=== PATIENT | male | born 1990 | race Caucasian/White ===

== ENCOUNTER 2020-01-06 11:34 | Emergency (ER) | payer OTHER, SELFPAY ==
--- NOTE | ~2020-01-06 | XR_ITS ---
EXAMINATION: XR lumbar spine 2-3V EXAM DATE: 01/06/2020 12:17 INDICATION: Left lower back pain developed while working out doing squats. TECHNIQUE: Lumber spine frontal, lateral, bilateral oblique projections. Coned down frontal and lat eral L5-S1 lumbar projections for interpretation. There is no prior study for comparison. FINDINGS: Minimal lumbar levocurvature. No spondylolysis. The vertebral bodies are aligned in the AP dimension. Vertebral body and disc heights are well-maintained. There are no acute fractures identifi ed. Sacrum, sacroiliac joints, sacral arcuate lines are intact. Paraspinal soft tissue is unremarkabl e. Mild lower lumbar facet arthropathy. IMPRESSION: 1. Mild lower lumbar facet arthropathy. 2. Minimal levocurvature. Reviewed, dictated and finalized at location A. GE OPERATOR
[2020-01-06 11:42] VITALS: BP 153/76; PULSE 64; RESP 18; TEMP 36.5; O2SAT 100
--- NOTE | 2020-01-06 11:51 | ED.GENADULT ---
HPI - General Adult General Chief complaint: Back Pain/Injury Stated complaint: lower back pain Time Seen by Provider: 01/06/20 11:52 Source: patient and RN notes reviewed Mode of arrival: ambulatory Limitations: no limitations History of Present Illness HPI narrative: This is a 29 years old male presented office for evaluation of lower back pain for 6days. Pain began while he was doing squat . States, he felt an instant pain, described as combination of sharp, dull, achy and dull pain. Pain is constant and worse at times. Denies numbness or tingling in his lower leg. Denies urinary or bowel incontinence. He has been taking ibuprofen for pain with no relief. Admits to history of chronic lower back pain with herniated disc, however he has not have any pain for the last 2 years. Denies recent trauma or injury directly to his back. He also does heavy weight lifting as form of exercise. He has not been exercising since his back pain. Related Data Allergies Allergy/AdvReac Type Severity Reaction Status Date / Time gluten Allergy Severe Diarrhea Verified 01/06/20 11:56 Review of Systems Review of Systems: Narrative: CONSTITUTIONAL: Denies fever or feeling ill ENT: Denies congestion CARDIOVASCULAR: Denies chest pain RESPIRATORY: Denies cough GASTROINTESTINAL: Denies nausea, vomiting GENITOURINARY: Denies urinary/bowel incontinent. SKIN: Denies rash MUSCULOSKELETAL: Reports back pain without any radiation NEUROLOGIC: Denies lightheaded/dizziness PMFSH Past Medical History Medical History Chronic back pain Herniated disc History of concussion Comments At time of signature, I agree with nursing past medical, surgical, social and family history. There is no relevant family history pertinent to the presenting complaint. Exam Narrative: Exam Narrative: GENERAL: This is a well-nourished, well-developed patient, in no apparent distress. CARDIOVASCULAR: Regular rate and rhythm without murmurs, gallops, or rubs. RESPIRATORY: Clear to auscultation. Breath sounds equal bilaterally. No wheezes, rales, or rhonchi. GASTROINTESTINAL: Abdomen soft, non-tender, nondistended. Bowel sounds are active.No guarding. SKIN: warm, intact with no suspicious lesions or rash on affected area. NEURO: awake, alert, and oriented to person, place and time. There were no obvious focal neurologic abnormalities. Steady gait BACK: Tenderness in the paraspinous muscles in the lumbar area. No tenderness over the spinous processes of the lumbar vertebrae. LEGS: Normal strength including dorsi-flexion and plantar flexion of the feet. Negative bilateral straight leg raising, normal and symmetrical knee and ankle reflexes. [place] Coma Scale Eye Opening: Spontaneous 4 [place] Coma Scale Motor: Obeys Commands 6 [place] Coma Scale Verbal: Oriented 5 Course Vital Signs Vital signs: Vital Signs Temperature 97.7 F 01/06/20 11:42 Pulse Rate 64 01/06/20 11:42 Respiratory Rate 18 01/06/20 11:42 Blood Pressure 153/76 H 01/06/20 11:42 Pulse Oximetry 100 01/06/20 11:42 Temperature 97.7 F 01/06/20 11:42 Pulse Rate 64 01/06/20 11:42 Respiratory Rate 18 01/06/20 11:42 Blood Pressure 153/76 H 01/06/20 11:42 Pulse Oximetry 100 01/06/20 11:42 Medical Decision Making MDM Narrative Medical decision making narrative: Discharge instructions reviewed with patient, as well as provided in writing per nursing staff. The instructions also include specific and strict return/GO TO THE ER as well as f/u information. All questions have been answered, and the patient deny any further questions with discharge and discharge plan. Differential Diagnosis Differential Diagnosis: Osteoarthritis, lumbar compression, DJD, sciatica, strain, muscle skeletal pain Medical Records Medical records reviewed: Yes I reviewed the patient's medical records. Vital Signs Vital Signs: Vital Signs Tem
[2020-01-06] MEDS: KETOROLAC 30 MG/ML VIAL (*BKC) 60 MG IV PUSH (12:22)
== END 2020-01-06 12:50 | disposition home or self-care (01) ==
PROVIDERS: Emergency Provider Nurse Practitioner
DX: M12.88 Other specific arthropathies, not elsewhere classified, other specified site (principal); R03.0 Elevated blood-pressure reading, without diagnosis of hypertension
CPT/HCPCS: 72100; 96374; 99213; G0463; J1885

== ENCOUNTER 2023-09-07 14:09 | Emergency (ER) | payer BC, SELFPAY ==
[2023-09-07 14:14] VITALS: BP 177/92; PULSE 99; RESP 16; TEMP 36.6; O2SAT 97
--- NOTE | 2023-09-07 14:25 | ED.BACK ---
HPI - Back Pain/Injury General Chief Complaint: Back Pain/Injury Stated Complaint: back pain Source: patient and RN notes reviewed History of Present Illness HPI Narrative: 33-year-old male presents to urgent care with complaints of left lower back pain. Patient reports a chronic history of lower back pain but states he has been having sciatica down his left leg for the last 3 weeks. Patient states last night he was standing up when he felt a pop in his left lower back, prompting a more intense pain. Patient denies any fevers, chills numbness, tingling, incontinence of urine or stool saddle anesthesia, or weakness. Patient has been taking 800 mg of ibuprofen at home. Related Data Home Medications Medication Instructions Recorded Confirmed famotidine 40 mg tablet 40 mg PO DAILY 09/07/23 09/07/23 fluoxetine 20 mg capsule 20 mg PO DAILY 09/07/23 09/07/23 Allergies Allergy/AdvReac Type Severity Reaction Status Date / Time gluten Allergy Severe Diarrhea Verified 09/07/23 14:17 Review of Systems Review of Systems: CONSTITUTIONAL: Denies fever, chills, or sweats. EYES: Denies visual changes, redness, or discharge. ENT: Denies otalgia and sore throat CARDIOVASCULAR: Denies chest pain, palpitations, or edema. RESPIRATORY: Denies cough or dyspnea. GASTROINTESTINAL: Denies abdominal pain, nausea, vomiting, or diarrhea. GENITOURINARY: Denies dysuria or hematuria. SKIN: Denies rash or itching. MUSCULOSKELETAL: Left lower back pain NEUROLOGIC: Denies headache, numbness, or weakness. Pertinent positives per HPI. [facility] Past Medical History Medical History (Updated 09/07/23 @ 14:26 by Marie Lema, JOSS) Chronic back pain Herniated disc History of concussion Comments At the time of my signature, I reviewed and agree with the nursing past medical, surgical, social, and family history. There is no relevant family history pertinent to the patient complaint. Exam Narrative: GENERAL: This is a well-nourished, well-developed patient, in no apparent distress. HEAD: normocephalic, atraumatic. EYES: Sclera clear/white. Vision is grossly intact. EARS: External ears normal, auditory canals clear and without drainage. Hearing grossly intact. NOSE: External nose normal with no obvious nasal discharge, nares without redness, no rhinorrhea. THROAT: Mucous membranes moist, posterior pharynx clear. NECK: Neck supple, non-tender without lymphadenopathy, masses or thyromegaly. CARDIOVASCULAR: Regular rate RESPIRATORY: No respiratory distress SKIN: warm, intact with no suspicious lesions or rash, good texture and turgor. NEURO: awake, alert, and oriented to person, place and time. There were no obvious focal neurologic abnormalities. EXTREMITIES: No clubbing, cyanosis, or edema. No joint tenderness, effusion, or edema noted. BACK: Tender to left lower back without deformity or crepitus. No spinal tenderness. No flank tenderness. Pt stiff and unable to move quickly or freely due to pain. Course Course Level of Care: Express Care Visit Vital Signs Vital signs: Vital Signs Temperature 97.9 F 09/07/23 14:14 Pulse Rate 99 09/07/23 14:14 Respiratory Rate 16 09/07/23 14:14 Blood Pressure 177/92 H 09/07/23 14:14 Pulse Oximetry 97 09/07/23 14:14 Oxygen Delivery Room Air 09/07/23 14:14 Temperature 97.9 F 09/07/23 14:14 Pulse Rate 99 09/07/23 14:14 Respiratory Rate 16 09/07/23 14:14 Blood Pressure 177/92 H 09/07/23 14:14 Pulse Oximetry 97 09/07/23 14:14 Oxygen Delivery Room Air 09/07/23 14:14 reviewed MDM - Back Pain/Injury MDM Narrative Medical decision making narrative: Take steroids as directed. May take 600 mg of ibuprofen (Advil, Motrin, Aleve) every 6 hours as needed with food or 800 mg every 8 hours. Follow up with director of casework in 5-7 days. Go to the emergency dept with any new or worsening symptoms. Differential Diagnosis Differential diagnosis: Likely sciatica, stra
[2023-09-07] MEDS: methylPREDNISolone SOD SUCC 125 MG VIAL IM (14:29)
== END 2023-09-07 14:39 | disposition home or self-care (01) ==
PROVIDERS: Emergency Provider Nurse Practitioner Family
DX: M54.32 Sciatica, left side (principal)
CPT/HCPCS: 96372; 99213; G0463; J2930

== ENCOUNTER 2023-11-23 10:22 | Emergency (ER) | payer BC, SELFPAY ==
[2023-11-23 10:31] VITALS: BP 160/83; PULSE 92; RESP 16; TEMP 36.4; O2SAT 100
--- NOTE | 2023-11-23 10:56 | ED.EYEPROB ---
HPI - Eye Problem General Chief complaint: Eye Problems Stated complaint: left eye Time Seen by Provider: 11/23/23 10:42 Source: patient, RN notes reviewed and old records reviewed Mode of arrival: ambulatory Limitations: no limitations History of Present Illness HPI Narrative: 33 year old male presents to [facility] care with complaints of left eye irritation and itching and redness with some increased watering and mucoid drainage this morning. Patient denies any foreign body sensation or any known foreign body. Patient states eye was a little blurry this morning but vision is clear now, normally wears contacts did take left contact out, no redness to right eye noted. Patient reports that he did put OTC eye drop in his left eye with no improvement.Visual acuity right eye 20/20 with contact lens, left eye 20/200 without corrective lens. MD chief complaint: eye redness Onset (ago): hour(s) (this morning) Eye Symptoms: burning, redness, itching, discharge and other (increased watering) Severity: mild Treatments Prior to Arrival: removed contact lens and other (otc eye drop) Related Data Home Medications Medication Instructions Recorded Confirmed famotidine 40 mg tablet 40 mg PO DAILY 09/07/23 09/07/23 fluoxetine 20 mg capsule 20 mg PO DAILY 09/07/23 09/07/23 clotrimazole 10 mg beatris mg 11/23/23 Allergies Allergy/AdvReac Type Severity Reaction Status Date / Time gluten Allergy Severe Diarrhea Verified 09/07/23 14:17 Review of Systems Review of Systems: CONSTITUTIONAL: Denies fever, chills, or sweats. EYES: Denies visual changes. Reports redness, irritation, discharge left eye, increased watering ENT: Denies rhinorrhea, congestion, sore throat, or otalgia. CARDIOVASCULAR: Denies chest pain, palpitations, or edema. RESPIRATORY: Denies cough or dyspnea. SKIN: Denies rash or itching. NEUROLOGIC: Denies headache All systems reviewed & are unremarkable except as noted in HPI and below PMFSH Past Medical History Medical History Anxiety Chronic back pain GERD (gastroesophageal reflux disease) Herniated disc History of concussion Surgical History Surgical History (Updated 11/24/23 @ 09:45 by Siri Morgan NP) H/O removal of cyst back of head History of dental surgery Social History Social History (Updated 11/24/23 @ 09:46 by Siri Morgan NP) Smoking packs per day: 1 Smoking cigarettes per day: 20.0 Years smoked: 15 Smoking pack-years: 15.00 Smoking status: Current every day smoker Tobacco type: cigarettes Alcohol intake: current Alcohol use details: social Substance use type: does not use Living arrangements: with family Gender identity (if verbalized by the patient): Male Comments At time of signature, agree with nursing past medical, surgical, social and family history. There is no relevant family history pertinent to the presenting complaint Exam Narrative: GENERAL: Well-appearing, well-nourished, and in no acute distress. HEAD: Normocephalic, atraumatic. EYES: PERRLA and EOMI. Upper and lower eyelids unremarkable. No periorbital cellulitis noted. Sclera and conjunctivae injected left eye, denies any sharp pain left eye ENT: Nares clear, no rhinorrhea or epistaxis. Mucous membranes moist.TM's normal throat pink with no lesions or swelling. NECK: Supple. no lymphadenopathy CHEST: Clear to auscultation. No respiratory distress.SAO2 100% on room air HEART: Regular rate and rhythm. No murmur heard. Normal peripheral pulses. SKIN: Warm, dry, no rash. NEURO: No focal deficits. Alert and oriented x3. Course Course Emergency Course: Patient is aware of diagnosis, understands and agrees to treatment plan. Anticipatory guidance given. Patient agrees to follow-up as directed and is aware of reasons to seek care at the emergency department. Portions of this record may have been created with voice recognition software
== END 2023-11-23 11:10 | disposition home or self-care (01) ==
PROVIDERS: Emergency Provider Registered Nurse; PCP Hospitalist
DX: H10.9 Unspecified conjunctivitis (principal); F17.210 Nicotine dependence, cigarettes, uncomplicated; K21.9 Gastro-esophageal reflux disease without esophagitis; F41.9 Anxiety disorder, unspecified
CPT/HCPCS: 99213; G0463

== ENCOUNTER 2024-10-10 08:02 | Emergency (ER) | payer BC, SELFPAY ==
[2024-10-10 08:08] VITALS: BP 170/100; PULSE 107; RESP 18; TEMP 36.6; O2SAT 99
--- NOTE | 2024-10-10 08:11 | ED_ITS ---
HPI - Eye Problem General Chief complaint: Eye Problems Stated complaint: Eye Problem Time Seen by Provider: 10/10/24 08:11 Source: patient Mode of arrival: ambulatory Limitations: no limitations History of Present Illness HPI Narrative: 34 yo M presents with c/o L eye irritation, redness, drainage for 3 days. Increase in swelling to lower eyelid. Wears contacts and has continued to wear them during symptoms. No vision change. Denies eye injury. all systems reviewed and negative except as noted above. Related Data Home Medications Medication Instructions Recorded Confirmed famotidine 40 mg tablet 40 mg PO DAILY 09/07/23 10/10/24 fluoxetine 20 mg capsule 20 mg PO DAILY 09/07/23 10/10/24 fluoxetine 10 mg capsule 10 mg PO DAILY 10/10/24 10/10/24 Allergies Allergy/AdvReac Type Severity Reaction Status Date / Time gluten Allergy Severe Diarrhea Verified 10/10/24 08:23 Review of Systems Review of Systems: CONSTITUTIONAL: Denies fever, chills, or sweats. EYES: Denies visual changes . Reports left eye redness, irritation, swelling, discharge. ENT: Denies rhinorrhea, congestion, sore throat, or otalgia. CARDIOVASCULAR: Denies chest pain, palpitations, or edema. RESPIRATORY: Denies cough or dyspnea. GASTROINTESTINAL: Denies abdominal pain, nausea, vomiting, or diarrhea. GENITOURINARY: Denies dysuria or hematuria. SKIN: Denies rash or itching. MUSCULOSKELETAL: Denies back pain, joint pain, or myalgia. NEUROLOGIC: Denies headache, numbness, or weakness. PSYCHIATRIC: Denies anxiety or depression. All other systems reviewed are negative, except as documented in HPI. [facility] Past Medical History Medical History Anxiety Chronic back pain GERD (gastroesophageal reflux disease) Herniated disc History of concussion Surgical History Surgical History (Updated 11/24/23 @ 09:45 by Siri Morgan NP) H/O removal of cyst back of head History of dental surgery Social History Social History (Updated 11/24/23 @ 09:46 by Siri Morgan NP) Smoking packs per day: 1 Smoking cigarettes per day: 20.0 Years smoked: 15 Smoking pack-years: 15.00 Smoking status: Current every day smoker Tobacco type: cigarettes Alcohol intake: current Alcohol use details: social Substance use type: does not use Living arrangements: with family Gender identity (if verbalized by the patient): Male Comments At time of signature, agree with nursing past medical, surgical, social and family history. There is no relevant family history pertinent to the presenting complaint. Exam Narrative: GENERAL: This is a well-nourished, well-developed patient, in no apparent distress. HEAD: normocephalic, atraumatic. EYES: PERRL. sclera and conjunctiva erythematous, thick yellowish drainage, swelling to lower eyelid. No pustule concerning for stye. EARS: External ears normal NOSE: External nose normal NECK: Neck supple, non-tender without lymphadenopathy, masses or thyromegaly. CARDIOVASCULAR: Regular rate and rhythm without murmurs, gallops, or rubs. RESPIRATORY: Clear to auscultation. Breath sounds equal bilaterally. No wheezes, rales, or rhonchi. SKIN: warm, Dry, intact with no suspicious lesions or rash, good texture and turgor. NEURO: awake, alert, and oriented to person, place and time. There were no obvious focal neurologic abnormalities. EXTREMITIES: No joint tenderness, effusion, or edema noted. Course Course Level of Care: Express Care Visit Vital Signs Vital signs: Vital Signs Temperature 36.6 C 10/10/24 08:08 Pulse Rate 107 H 10/10/24 08:08 Respiratory Rate 18 10/10/24 08:08 Blood Pressure 170/100 H 10/10/24 08:08 Pulse Oximetry 99 10/10/24 08:08 Oxygen Delivery Room Air 10/10/24 08:08 Temperature 36.6 C 10/10/24 08:08 Pulse Rate 107 H 10/10/24 08:08 Respiratory Rate 18 10/10/24 08:08 Blood Pressure 156/92 H 10/10/24 08:19 Pulse Oximetry 99 10/10/24 08:08 Oxygen Delivery Room Air 10/10/24 08:08 reviewed, discussed pt's elevated BP with him. has not taken in 1 wk. educated on taking BP meds daily. MDM - Eye Problem MDM Narrative Medical decision making narrative: Patient is aware of diagnosis, understands and agrees to treatment plan. Anticipatory guidance given. Patient agrees to follow-up as directed and is aware of reasons to seek care at the emergency department. Portions of this record may have been created with voice recognition software will treat patient for bacterial conjunctivitis due to patient's symptoms. Patient is having some tenderness to left lower eyelid, not on palpation, but he feels pain. Possible he is developing a stye due to the swelling that is noted but no pustule is seen. Will use erythromycin for conjunctivitis. Discharge Plan Discharge Clinical Impression: Acute bacterial conjunctivitis of left eye, Elevated blood pressure reading Patient Disposition: Home, Self-Care Condition: Stable Instructions: Antibiotic Form, Conjunctivitis (ED) Additional Instructions: Use antibiotic ointment as prescribed. Take out contacts, throw away current pair, and wear glasses until completing antibiotic. Wash hands before and after placing antibiotic ointment. Your blood pressure was elevated today. Take your medication daily. See your solar site assessment specialist if not improving. Prescriptions: New erythromycin 5 mg/gram (0.5 %) ointment 1 applic LEFT EYE QID 10 Days Qty: 3.5 0RF No Action famotidine 40 mg tablet 40 mg PO DAILY fluoxetine 20 mg capsule 20 mg PO DAILY fluoxetine 10 mg capsule 10 mg PO DAILY Follow-up/Referrals: Jenni,MD Dao [Primary Care Provider] - Stand Alone Forms: Work/School Release IP Time of Disposition: 08:22
[2024-10-10 08:19] VITALS: BP 156/92
== END 2024-10-10 08:25 | disposition home or self-care (01) ==
PROVIDERS: Emergency Provider Nurse Practitioner Family; PCP Hospitalist
DX: H10.32 Unspecified acute conjunctivitis, left eye (principal); R03.0 Elevated blood-pressure reading, without diagnosis of hypertension; K21.9 Gastro-esophageal reflux disease without esophagitis; F41.9 Anxiety disorder, unspecified; F17.210 Nicotine dependence, cigarettes, uncomplicated
CPT/HCPCS: 99213; G0463

== ENCOUNTER 2025-02-19 09:43 | Outpatient (CLI) | payer OTHER, SELFPAY ==
--- NOTE | ~2025-02-19 | MR_ITS ---
MRI of the left shoulder Technique: Axial proton-density fat-sat images, coronal proton density fat-sat and T2 fat-sat images, and sagittal T1-weighted and T2 fat-sat images were acquired. Clinical History: Impingement syndrome Findings: There is mild AC joint degenerative change. Coracoclavicular, coracoacromial, and coracohum eral ligaments are intact. Supraspinatus and infraspinatus tendons are intact, without partial or full-thickness tear. There is mild supraspinatus tendinosis. Subscapularis tendon is intact with mild tendinosis. Tendon of the og g head of the biceps is intact. No labral tear evident. Inferior glenohumeral ligament is intact. No degenerative change or effusion of the glenohumeral join t. No fluid distention of the subacromial/subdeltoid bursa. No muscle atrophy or edema. Impression: Rotator cuff tendinosis, as above. Minimal AC joint degenerative change. Reviewed, dictated and finalized at location . Impression: Rotator cuff tendinosis, as above. Minimal AC joint degenerative change.
== END 2025-02-19 09:44 | disposition home or self-care (01) ==
LOC: MICIMG 09:47
PROVIDERS: PCP Physician Assistant Surgical; Visit Provider Physician Assistant Surgical
DX: M75.42 Impingement syndrome of left shoulder (principal); M75.32 Calcific tendinitis of left shoulder; M19.012 Primary osteoarthritis, left shoulder
CPT/HCPCS: 73221